=== PATIENT | male | born 1940 | race Caucasian/White ===

== ENCOUNTER 2020-07-28 07:20 | Emergency (ER) | payer MEDICARE ==
--- NOTE | 2020-07-28 09:37 | EDM.PDOC ---
ED HPI GENERAL MEDICAL PROBLEM - General Chief Complaint: Gastrointestinal Problem Stated Complaint: esophageal blockage Time Seen by Provider: 07/28/20 08:00 Source of Information: Reports: Patient History Limitations: Reports: No Limitations - History of Present Illness INITIAL COMMENTS - FREE TEXT/NARRATIVE: Pt with know esophageal stricture, on vacation, ate what he knew he was not to ear, 'BBQ ribs, last evening around 7pm. States meat is stuck in his lower esophagus. Has not been vomiting food content but unable to pass his saliva. Pt has required endoscopy in past. He is in no apparent distress at this time. Onset: Sudden Onset Date: 07/27/20 Onset Time: 19:00 Duration: Constant Location: Reports: Chest Quality: Reports: Same as Previous Episode Severity: Mild Improves with: Reports: None Worsens with: Reports: None Associated Symptoms: Reports: No Other Symptoms - Related Data Allergies Allergy/AdvReac Type Severity Reaction Status Date / Time Penicillins Allergy Cannot Verified 07/28/20 07:49 Remember ED ROS ENT - Review of Systems Review Of Systems: See Below Constitutional: Reports: No Symptoms HEENT: Reports: No Symptoms. Denies: Throat Pain, Throat Swelling Respiratory: Reports: No Symptoms. Denies: Shortness of Breath, Wheezing Cardiovascular: Reports: No Symptoms. Denies: Chest Pain, Blood Pressure Problem GI/Abdominal: Reports: Other (Esophageal reflux) Musculoskeletal: Reports: No Symptoms Skin: Reports: No Symptoms Neurological: Reports: No Symptoms Psychiatric: Reports: No Symptoms ED EXAM, ENT - Physical Exam Exam: See Below Exam Limited By: No Limitations General Appearance: Alert, WD/WN, No Apparent Distress Ears: Normal External Exam Nose: Normal Inspection Mouth/Throat: Normal Inspection, Normal Gums, Normal Lips, Normal Oropharynx Head: Atraumatic, Normocephalic Neck: Normal Inspection, Supple, Non-Tender Respiratory/Chest: No Respiratory Distress Cardiovascular: Normal Peripheral Pulses, Regular Rate, Rhythm GI/Abdominal: Normal Bowel Sounds, Soft, Non-Tender Back: Normal Inspection Course - Vital Signs Last Recorded V/S: Last Vital Signs Temp 98.2 F 07/28/20 07:43 Pulse 79 07/28/20 07:43 Resp 20 07/28/20 07:43 BP 188/92 H 07/28/20 07:43 Pulse Ox 98 07/28/20 07:43 - Re-Assessments/Exams Free Text/Narrative Re-Assessment/Exam: 07/28/20 09:04 Pt in no acute distress at this time. He was offered a transfer to another ER where a GI doctor would be available He was also offered a possible home remedy to try today before deciding on need to be transferred. Home Remedy: 1 tbs of 'meat tender riser' in 15 oz glass of water and sip slowly over next several hours; sometimes the meat tender riser may break up the bolus and save the need for transfer to another ER where GI MD could see him and retrieve the food bolus. Departure - Departure Time of Disposition: :08 Disposition: DC/Tfer to [facility] 05 Condition: Fair Clinical Impression: Esophageal stricture - Discharge Information *PRESCRIPTION DRUG MONITORING PROGRAM REVIEWED*: Not Applicable *COPY OF PRESCRIPTION DRUG MONITORING REPORT IN PATIENT WAGNER: Not Applicable Instructions: Esophageal Stricture Referrals: PCP,None [Primary Care Provider] - Forms: ED Department Discharge Additional Instructions: Do not eat anything until the blockage is cleared! Go to the grocery store and purchase meat tenderizer add about 1 tablespoon of the tenderizer in to 10-15 mls of water and drink it. You can do this several times throughout the day, if it has not cleared by tomorrow morning, please return. If the blockage gets worse return to the ER immediately. Feel free to call [phone] if you have any questions or concerns. Thanks Ladi Ervin Sepsis Event Note (ED) - Evaluation Sepsis Screening Result: No Definite Risk - Focused Exam Vital Signs: Vital Signs Temp Pulse Resp BP Pulse Ox 07/28/20 07:43 98.2 F 79 20 188/92 H 98
== END 2020-07-28 08:50 | disposition designated cancer center or children's hospital (05) ==
LOC: LB.ED 07:20
DX: K22.2 Esophageal obstruction (principal); Z88.0 Allergy status to penicillin
CPT/HCPCS: 99283